=== PATIENT | female | born 1945 | race Caucasian/White ===

== ENCOUNTER 2017-04-07 10:39 | Inpatient (IN) | payer MEDICARE, OTHER ==
[2017-04-07] MEDS: ASPIRIN 81 MG TAB PO (11:25)
[2017-04-07 11:31] LABS: ADD MAN DIFF? NO
[2017-04-07 11:36] LABS: WHITE BLOOD COUNT 13.7 10^3/ul (4.8-10.8)
[2017-04-07 11:36] LABS: BASOPHIL # 0.1 10^3/ul (0.0-0.1); BASOPHILS % 0.4 % (0.0-2.0); EOSINOPHILS # 0.1 10^3/ul (0.0-0.5); EOSINOPHILS % 0.7 % (0.0-7.0); HEMATOCRIT 37.9 % (37.0-47.0); HEMOGLOBIN 12.2 g/dl (12.0-16.0); LYMPHOCYTES # 0.7 10^3/ul (0.8-2.9); LYMPHOCYTES % 5.1 % (15.0-51.0); MEAN CORPUSCULAR HGB CONC 32.2 g/dl (32.0-37.0); MEAN CORPUSCULAR VOLUME 80.6 fl (82.0-101.0); MEAN PLATELET VOLUME 11.6 fl (7.4-10.4); MONOCYTE # 0.6 10^3/ul (0.3-0.9); MONOCYTES % 4.2 % (0.0-11.0); NEUTROPHIL # 12.2 10^3/ul (1.6-7.5); NEUTROPHILS % 89.2 % (39.0-77.0); PLATELET COUNT 248 10^3/UL (140-415); RED CELL DISTRIBUTION WIDTH 13.9 % (11.5-14.5)
[2017-04-07] MEDS: NITROGLYCERIN (SL) 0.4 MG TAB SL (11:53)
[2017-04-07 11:57] LABS: ANION GAP 12 (8-16); BLOOD UREA NITROGEN 23 mg/dl (7-20); CALCIUM 9.7 mg/dl (8.4-10.2); CARBON DIOXIDE 27 mmol/L (21-31); CHLORIDE 108 mmol/L (97-110); CREATININE 0.65 mg/dl (0.44-1.00); GLUCOSE 140 mg/dl (70-220); POTASSIUM 4.1 mmol/L (3.5-5.1); SODIUM 143 mmol/L (135-144)
[2017-04-07 12:14] LABS: TROPONIN-I < 0.012 ng/ml (0.00-0.12)
[2017-04-07 18:20] LABS: CREATINE KINASE 23 IU/L (23-200)
[2017-04-07 18:30] LABS: CK INDEX 5.3; CK-MB 1.23 ng/ml (0.0-2.4)
[2017-04-07 18:55] LABS: TROPONIN-I 0.028 ng/ml (0.00-0.12)
[2017-04-07] MEDS: SOD CHLORIDE 0.9% 1,000 ML IV (18:59)
[2017-04-07] MEDS: METOPROLOL 50 MG TAB PO (21:00)
[2017-04-07] MEDS: APIXABAN 5 MG TABLET PO (21:21)
[2017-04-07] MEDS: GUAIFENESIN LA 600 MG TABSR PO (22:18)
[2017-04-07] MEDS: ONDANSETRON 4 MG INJ IV (22:24)
[2017-04-07] MEDS: LOPERAMIDE 2 MG CAP PO (23:25)
[2017-04-07] MEDS: ACETAMINOPHEN 325 MG TAB PO (23:25)
[2017-04-07 23:47] LABS: CREATINE KINASE 24 IU/L (23-200)
[2017-04-07 23:56] LABS: CK INDEX 5.7; CK-MB 1.36 ng/ml (0.0-2.4)
[2017-04-08] MEDS: SOD CHLORIDE 0.9% 1,000 ML IV ×2 (02:36→10:00)
[2017-04-08 07:28] LABS: ADD MAN DIFF? NO
[2017-04-08 07:33] LABS: BASOPHILS % 0.3 % (0.0-2.0); EOSINOPHILS # 0.1 10^3/ul (0.0-0.5); HEMATOCRIT 33.5 % (37.0-47.0); HEMOGLOBIN 10.6 g/dl (12.0-16.0); LYMPHOCYTES # 1.3 10^3/ul (0.8-2.9); MEAN CORPUSCULAR HEMOGLOBIN 25.8 pg (29.0-33.0); MEAN CORPUSCULAR HGB CONC 31.6 g/dl (32.0-37.0); MEAN CORPUSCULAR VOLUME 81.5 fl (82.0-101.0); MEAN PLATELET VOLUME 11.6 fl (7.4-10.4); MONOCYTE # 0.7 10^3/ul (0.3-0.9); MONOCYTES % 12.4 % (0.0-11.0); NEUTROPHIL # 3.8 10^3/ul (1.6-7.5); PLATELET COUNT 175 10^3/UL (140-415); RED BLOOD COUNT 4.11 10^6/ul (4.20-5.40); RED CELL DISTRIBUTION WIDTH 13.9 % (11.5-14.5)
[2017-04-08 10:24] LABS: ANION GAP 12 (8-16); BLOOD UREA NITROGEN 21 mg/dl (7-20); CALCIUM 8.9 mg/dl (8.4-10.2); CARBON DIOXIDE 20 mmol/L (21-31); CHLORIDE 112 mmol/L (97-110); CREATININE 0.65 mg/dl (0.44-1.00); GLUCOSE 94 mg/dl (70-220); POTASSIUM 3.3 mmol/L (3.5-5.1); SODIUM 141 mmol/L (135-144)
[2017-04-08] MEDS: METHIMAZOLE 5 MG TAB PO (11:18)
[2017-04-08] MEDS: GUAIFENESIN LA 600 MG TABSR PO ×2 (11:18→20:39)
[2017-04-08] MEDS: APIXABAN 5 MG TABLET PO ×2 (11:18→20:39)
[2017-04-08] MEDS: METOPROLOL 50 MG TAB PO ×2 (11:19→20:41)
[2017-04-08] MEDS: FUROSEMIDE 20 MG TAB PO (11:19)
[2017-04-08] MEDS: LISINOPRIL 10 MG TAB PO (11:20)
[2017-04-08] MEDS: ACETAMINOPHEN 325 MG TAB PO (11:38)
[2017-04-08] MEDS: VANCOMYCIN HCL 250 MG/5ML POSYG PO (17:32)
[2017-04-08] MEDS: POTASSIUM CHLORIDE (SR) 10 MEQ TAB PO (20:39)
[2017-04-09] MEDS: POTASSIUM CHLORIDE (SR) 10 MEQ TAB PO (00:21)
[2017-04-09] MEDS: VANCOMYCIN HCL 250 MG/5ML POSYG PO ×5 (00:21→23:53)
[2017-04-09 07:23] LABS: ADD MAN DIFF? NO
[2017-04-09 07:25] LABS: BASOPHILS % 0.3 % (0.0-2.0); EOSINOPHILS # 0.2 10^3/ul (0.0-0.5); EOSINOPHILS % 2.5 % (0.0-7.0); HEMATOCRIT 34.9 % (37.0-47.0); HEMOGLOBIN 11.1 g/dl (12.0-16.0); LYMPHOCYTES # 1.7 10^3/ul (0.8-2.9); LYMPHOCYTES % 28.3 % (15.0-51.0); MEAN CORPUSCULAR HEMOGLOBIN 25.9 pg (29.0-33.0); MEAN CORPUSCULAR HGB CONC 31.8 g/dl (32.0-37.0); MEAN CORPUSCULAR VOLUME 81.5 fl (82.0-101.0); MEAN PLATELET VOLUME 11.5 fl (7.4-10.4); MONOCYTE # 0.9 10^3/ul (0.3-0.9); MONOCYTES % 14.7 % (0.0-11.0); NEUTROPHIL # 3.3 10^3/ul (1.6-7.5); PLATELET COUNT 215 10^3/UL (140-415); RED BLOOD COUNT 4.28 10^6/ul (4.20-5.40)
[2017-04-09 07:25] LABS: WHITE BLOOD COUNT 6.1 10^3/ul (4.8-10.8)
[2017-04-09 07:52] LABS: ANION GAP 15 (8-16); BLOOD UREA NITROGEN 18 mg/dl (7-20); CALCIUM 9.6 mg/dl (8.4-10.2); CARBON DIOXIDE 15 mmol/L (21-31); CHLORIDE 115 mmol/L (97-110); CREATININE 0.64 mg/dl (0.44-1.00); GLUCOSE 77 mg/dl (70-220); MAGNESIUM 1.8 mg/dl (1.7-2.5); POTASSIUM 4.1 mmol/L (3.5-5.1); SODIUM 141 mmol/L (135-144)
[2017-04-09] MEDS: METOPROLOL 50 MG TAB PO ×2 (09:14→20:24)
[2017-04-09] MEDS: METHIMAZOLE 5 MG TAB PO (09:14)
[2017-04-09] MEDS: APIXABAN 5 MG TABLET PO ×2 (09:14→20:22)
[2017-04-09] MEDS: LISINOPRIL 10 MG TAB PO (09:14)
[2017-04-09] MEDS: FUROSEMIDE 20 MG TAB PO (09:14)
[2017-04-09] MEDS: GUAIFENESIN LA 600 MG TABSR PO ×2 (09:14→21:00)
[2017-04-09] MEDS: NYSTATIN 30 GM POWDER BTL TOP ×2 (16:20→20:23)
[2017-04-09] MEDS: HYDROCODONE/APAP (5/325) TAB PO (16:21)
[2017-04-09] MEDS: GUAIFENESIN/DM 5ML CUP PO (21:21)
[2017-04-09] MEDS: PE/SHARK OIL/MO/PETROL 30 GM OINT PR (23:53)
[2017-04-10] MEDS: VANCOMYCIN HCL 250 MG/5ML POSYG PO ×3 (05:52→18:56)
[2017-04-10 07:26] LABS: HEMOGLOBIN A1C 5.6 % (0-5.9)
[2017-04-10] MEDS: METHIMAZOLE 5 MG TAB PO (09:32)
[2017-04-10] MEDS: GUAIFENESIN LA 600 MG TABSR PO ×2 (09:32→21:10)
[2017-04-10] MEDS: METOPROLOL 50 MG TAB PO ×2 (09:33→21:11)
[2017-04-10] MEDS: LISINOPRIL 10 MG TAB PO (09:33)
[2017-04-10] MEDS: NYSTATIN 30 GM POWDER BTL TOP ×2 (09:33→21:11)
[2017-04-10] MEDS: FUROSEMIDE 20 MG TAB PO (09:33)
[2017-04-10] MEDS: APIXABAN 5 MG TABLET PO ×2 (09:34→21:10)
[2017-04-10] MEDS: LORATADINE 10 MG TAB PO (19:03)
[2017-04-10] MEDS: FLUTICASONE 0.05% 16 GM NAS SPRAY NASAL (21:10)
[2017-04-11] MEDS: VANCOMYCIN HCL 250 MG/5ML POSYG PO ×3 (00:11→12:56)
[2017-04-11] MEDS: LORATADINE 10 MG TAB PO (09:13)
[2017-04-11] MEDS: FLUTICASONE 0.05% 16 GM NAS SPRAY NASAL (09:13)
[2017-04-11] MEDS: APIXABAN 5 MG TABLET PO (09:13)
[2017-04-11] MEDS: FUROSEMIDE 20 MG TAB PO (09:14)
[2017-04-11] MEDS: LISINOPRIL 10 MG TAB PO (09:15)
[2017-04-11] MEDS: GUAIFENESIN LA 600 MG TABSR PO (09:15)
[2017-04-11] MEDS: METHIMAZOLE 5 MG TAB PO (09:15)
[2017-04-11] MEDS: NYSTATIN 30 GM POWDER BTL TOP (09:16)
[2017-04-11] MEDS: METOPROLOL 50 MG TAB PO (09:16)
== END 2017-04-11 15:15 | disposition home health service (06) | DRG 373 ==
LOC: MS2 04-09 11:24 → E/R 10:39 → MS2 16:24 → MS4 12:58
DX: A04.72 Enterocolitis due to Clostridium difficile, not specified as recurrent (principal); I50.9 Heart failure, unspecified; I48.91 Unspecified atrial fibrillation; I11.0 Hypertensive heart disease with heart failure; E05.90 Thyrotoxicosis, unspecified without thyrotoxic crisis or storm; E11.9 Type 2 diabetes mellitus without complications; Z95.1 Presence of aortocoronary bypass graft; Z87.891 Personal history of nicotine dependence
CPT/HCPCS: 36415; 71010; 80048; 82550; 82553; 83036; 83735; 84484; 85025; 87075; 87081; 87275; 87276; 87279; 87280; 87400; 93005; 99285-25; G0378

== ENCOUNTER 2017-05-19 10:06 | Observation (INO) | payer MEDICARE, OTHER ==
[2017-05-19] MEDS: morphine 4 MG/ML VIAL IV (10:36)
[2017-05-19] MEDS ORDERED: NITROGLYCERIN (SL) 0.4 MG TAB SL (11:00)
[2017-05-19 11:04] LABS: ADD MAN DIFF? NO
[2017-05-19 11:12] LABS: WHITE BLOOD COUNT 7.8 10^3/ul (4.8-10.8)
[2017-05-19 11:12] LABS: BASOPHILS % 0.5 % (0.0-2.0); EOSINOPHILS # 0.1 10^3/ul (0.0-0.5); EOSINOPHILS % 0.9 % (0.0-7.0); HEMATOCRIT 32.4 % (37.0-47.0); HEMOGLOBIN 10.4 g/dl (12.0-16.0); LYMPHOCYTES # 1.7 10^3/ul (0.8-2.9); LYMPHOCYTES % 22.3 % (15.0-51.0); MEAN CORPUSCULAR HEMOGLOBIN 25.6 pg (29.0-33.0); MEAN CORPUSCULAR HGB CONC 32.1 g/dl (32.0-37.0); MEAN CORPUSCULAR VOLUME 79.8 fl (82.0-101.0); MEAN PLATELET VOLUME 11.4 fl (7.4-10.4); MONOCYTE # 0.6 10^3/ul (0.3-0.9); MONOCYTES % 7.4 % (0.0-11.0); NEUTROPHIL # 5.3 10^3/ul (1.6-7.5); NEUTROPHILS % 68.6 % (39.0-77.0); PLATELET COUNT 223 10^3/UL (140-415); RED BLOOD COUNT 4.06 10^6/ul (4.20-5.40); RED CELL DISTRIBUTION WIDTH 13.9 % (11.5-14.5)
[2017-05-19 11:32] LABS: ANION GAP 13 (8-16); BLOOD UREA NITROGEN 11 mg/dl (7-20); CALCIUM 9.4 mg/dl (8.4-10.2); CARBON DIOXIDE 26 mmol/L (21-31); CHLORIDE 107 mmol/L (97-110); CREATININE 0.62 mg/dl (0.44-1.00); GLUCOSE 127 mg/dl (70-220); POTASSIUM 3.5 mmol/L (3.5-5.1); SODIUM 142 mmol/L (135-144)
[2017-05-19] MEDS: ONDANSETRON 4 MG INJ IV (11:34)
[2017-05-19] MEDS: NITROGLYCERIN 2% 1 GM OINT PKT TD (11:34)
[2017-05-19] MEDS: ASPIRIN 81 MG TAB PO (11:35)
[2017-05-19 11:44] LABS: TROPONIN-I 0.032 ng/ml (0.00-0.12)
[2017-05-19] MEDS ORDERED: ONDANSETRON 4 MG INJ IV (13:30)
[2017-05-19] MEDS ORDERED: GLUCOSE GEL 15 GRAM TUBE BUCCAL (15:30)
[2017-05-19] MEDS ORDERED: GLUCOSE GEL 15 GRAM TUBE PO ×2 (15:30)
[2017-05-19] MEDS ORDERED: GLUCAGON 1 MG INJ IM (15:30)
[2017-05-19] MEDS ORDERED: DEXTROSE 50% 50 ML SYRINGE IV ×2 (15:30)
[2017-05-19] MEDS: ACETAMINOPHEN 325 MG TAB PO (15:33)
[2017-05-19 17:05] LABS: CREATINE KINASE 34 IU/L (23-200)
[2017-05-19 17:15] LABS: CK INDEX 2.7; CK-MB 0.91 ng/ml (0.0-2.4)
[2017-05-19] MEDS: INSULIN ASPART [NOVOLOG] 3 ML PEN SC ×2 (18:00→21:00)
[2017-05-19] MEDS: METOPROLOL 50 MG TAB PO (21:53)
[2017-05-19] MEDS: APIXABAN 5 MG TABLET PO (21:54)
[2017-05-19] MEDS ORDERED: FLUTICASONE 0.05% 16 GM NAS SPRAY NASAL (23:00)
[2017-05-19 23:46] LABS: CREATINE KINASE 30 IU/L (23-200)
[2017-05-19 23:57] LABS: CK INDEX 2.7; CK-MB 0.82 ng/ml (0.0-2.4); TROPONIN-I 0.043 ng/ml (0.00-0.12)
[2017-05-20] MEDS: FLUTICASONE 0.05% 16 GM NAS SPRAY NASAL ×2 (01:10→16:43)
[2017-05-20] MEDS: CEPASTAT LOZENGE MT ×2 (01:10→09:24)
[2017-05-20] MEDS: BENZONATATE 100 MG CAP PO ×2 (01:10→15:10)
[2017-05-20] MEDS: ACCU-CHEK XX (02:00)
[2017-05-20] MEDS: ACETAMINOPHEN 325 MG TAB PO ×2 (05:45→10:30)
[2017-05-20] MEDS: INSULIN ASPART [NOVOLOG] 3 ML PEN SC ×4 (07:30→21:00)
[2017-05-20] MEDS: FUROSEMIDE 20 MG TAB PO (08:08)
[2017-05-20] MEDS: metFORMIN 500 MG TAB PO (08:09)
[2017-05-20] MEDS: APIXABAN 5 MG TABLET PO ×2 (08:09→21:41)
[2017-05-20] MEDS: LISINOPRIL 10 MG TAB PO (08:09)
[2017-05-20] MEDS: METHIMAZOLE 5 MG TAB PO (08:10)
[2017-05-20] MEDS: METOPROLOL 50 MG TAB PO ×2 (08:11→21:41)
[2017-05-20] MEDS: GUAIFENESIN/DM 5ML CUP PO ×3 (10:30→18:45)
[2017-05-20 10:58] LABS: ADD MAN DIFF? NO
[2017-05-20 11:01] LABS: BASOPHIL # 0.1 10^3/ul (0.0-0.1); BASOPHILS % 0.7 % (0.0-2.0); EOSINOPHILS # 0.2 10^3/ul (0.0-0.5); EOSINOPHILS % 2.3 % (0.0-7.0); HEMATOCRIT 32.8 % (37.0-47.0); HEMOGLOBIN 10.4 g/dl (12.0-16.0); LYMPHOCYTES # 2.2 10^3/ul (0.8-2.9); MEAN CORPUSCULAR HEMOGLOBIN 25.7 pg (29.0-33.0); MEAN CORPUSCULAR HGB CONC 31.7 g/dl (32.0-37.0); MEAN PLATELET VOLUME 11.7 fl (7.4-10.4); MONOCYTE # 0.8 10^3/ul (0.3-0.9); MONOCYTES % 8.6 % (0.0-11.0); NEUTROPHIL # 5.9 10^3/ul (1.6-7.5); NEUTROPHILS % 64.3 % (39.0-77.0); PLATELET COUNT 229 10^3/UL (140-415); RED BLOOD COUNT 4.05 10^6/ul (4.20-5.40); RED CELL DISTRIBUTION WIDTH 14.2 % (11.5-14.5)
[2017-05-20 11:01] LABS: WHITE BLOOD COUNT 9.1 10^3/ul (4.8-10.8)
[2017-05-20 11:28] LABS: IRON 25 ug/dl (35-150)
[2017-05-20 11:30] LABS: ALANINE AMINOTRANSFERASE 25 IU/L (13-69); ALBUMIN 3.6 g/dl (3.3-4.9); ALKALINE PHOSPHATASE 91 IU/L (42-121); ANION GAP 12 (8-16); ASPARTATE AMINO TRANSFERASE 20 IU/L (15-46); BILIRUBIN,INDIRECT 0.7 mg/dl (0-1.1); BILIRUBIN,TOTAL 0.7 mg/dl (0.2-1.3); BLOOD UREA NITROGEN 11 mg/dl (7-20); CALCIUM 9.7 mg/dl (8.4-10.2); CARBON DIOXIDE 29 mmol/L (21-31); CHLORIDE 105 mmol/L (97-110); CREATININE 0.64 mg/dl (0.44-1.00); GLUCOSE 114 mg/dl (70-220); SODIUM 142 mmol/L (135-144); TOTAL PROTEIN 7.4 g/dl (6.1-8.1)
[2017-05-20 11:38] LABS: % IRON SATURATION 9 % SAT (22-52); TOTAL IRON BINDING CAPACITY 271 ug/dl (241-421)
[2017-05-20 11:41] LABS: FREE THYROXINE INDEX (Calc) 9.38 ug/ml (0.65-3.89); T3 UPTAKE 39.4 % (23.5-40.5); T4 (THYROXINE) 23.8 ug/dl (5.5-11.0)
[2017-05-20 11:58] LABS: THYROID STIMULATING HORMONE < 0.015 MIU/L (0.465-4.680)
[2017-05-21] MEDS: ACCU-CHEK XX (02:00)
[2017-05-21] MEDS: GUAIFENESIN/DM 5ML CUP PO ×2 (06:27→12:59)
[2017-05-21] MEDS: INSULIN ASPART [NOVOLOG] 3 ML PEN SC ×2 (07:55→11:50)
[2017-05-21 08:04] LABS: ADD MAN DIFF? NO
[2017-05-21 08:18] LABS: WHITE BLOOD COUNT 7.6 10^3/ul (4.8-10.8)
[2017-05-21 08:18] LABS: BASOPHIL # 0.1 10^3/ul (0.0-0.1); BASOPHILS % 0.7 % (0.0-2.0); EOSINOPHILS # 0.2 10^3/ul (0.0-0.5); EOSINOPHILS % 2.9 % (0.0-7.0); HEMATOCRIT 32.8 % (37.0-47.0); HEMOGLOBIN 10.5 g/dl (12.0-16.0); LYMPHOCYTES # 1.8 10^3/ul (0.8-2.9); LYMPHOCYTES % 23.9 % (15.0-51.0); MEAN CORPUSCULAR HEMOGLOBIN 25.7 pg (29.0-33.0); MEAN CORPUSCULAR VOLUME 80.2 fl (82.0-101.0); MEAN PLATELET VOLUME 11.7 fl (7.4-10.4); MONOCYTE # 0.8 10^3/ul (0.3-0.9); MONOCYTES % 10.8 % (0.0-11.0); NEUTROPHIL # 4.7 10^3/ul (1.6-7.5); NEUTROPHILS % 61.3 % (39.0-77.0); PLATELET COUNT 216 10^3/UL (140-415); RED BLOOD COUNT 4.09 10^6/ul (4.20-5.40); RED CELL DISTRIBUTION WIDTH 13.7 % (11.5-14.5)
[2017-05-21 08:27] LABS: IRON 25 ug/dl (35-150)
[2017-05-21 08:31] LABS: CHOLESTEROL 151 mg/dl (100-200)
[2017-05-21 08:31] LABS: CHOL/HDL RATIO 3.6 RATIO; HDL CHOLESTEROL 41 mg/dl (33-92); LDL CHOLESTEROL,CALCULATED 87 mg/dl; TRIGLYCERIDES 113 mg/dl (0-149)
[2017-05-21 08:33] LABS: PHOSPHORUS 3.9 mg/dl (2.5-4.9)
[2017-05-21 08:33] LABS: MAGNESIUM 1.9 mg/dl (1.7-2.5)
[2017-05-21 08:37] LABS: % IRON SATURATION 10 % SAT (22-52); TOTAL IRON BINDING CAPACITY 260 ug/dl (241-421)
[2017-05-21] MEDS: FUROSEMIDE 20 MG TAB PO (08:49)
[2017-05-21] MEDS: METHIMAZOLE 5 MG TAB PO (08:49)
[2017-05-21] MEDS: LISINOPRIL 10 MG TAB PO (08:49)
[2017-05-21] MEDS: metFORMIN 500 MG TAB PO (08:50)
[2017-05-21] MEDS: METOPROLOL 50 MG TAB PO (08:50)
[2017-05-21] MEDS: APIXABAN 5 MG TABLET PO (08:50)
[2017-05-21] MEDS: ACETAMINOPHEN 325 MG TAB PO (08:54)
[2017-05-21 09:04] LABS: FERRITIN 54.5 ng/ml (11.1-264.0)
[2017-05-21 09:39] LABS: HEMOGLOBIN A1C 5.6 % (0-5.9)
[2017-05-21 10:55] LABS: ANION GAP 14 (8-16); BLOOD UREA NITROGEN 13 mg/dl (7-20); CALCIUM 9.5 mg/dl (8.4-10.2); CARBON DIOXIDE 26 mmol/L (21-31); CHLORIDE 105 mmol/L (97-110); GLUCOSE 109 mg/dl (70-220); POTASSIUM 3.7 mmol/L (3.5-5.1); SODIUM 141 mmol/L (135-144)
== END 2017-05-21 15:50 | disposition home or self-care (01) ==
LOC: E/R 10:06 → TEL 13:13
DX: R07.9 Chest pain, unspecified (principal); J06.9 Acute upper respiratory infection, unspecified; I25.10 Atherosclerotic heart disease of native coronary artery without angina pectoris; Z95.1 Presence of aortocoronary bypass graft; Z95.5 Presence of coronary angioplasty implant and graft; I48.0 Paroxysmal atrial fibrillation; I10 Essential (primary) hypertension; I25.2 Old myocardial infarction; Z79.01 Long term (current) use of anticoagulants; F17.200 Nicotine dependence, unspecified, uncomplicated; E11.9 Type 2 diabetes mellitus without complications; I35.0 Nonrheumatic aortic (valve) stenosis; E05.90 Thyrotoxicosis, unspecified without thyrotoxic crisis or storm; I42.9 Cardiomyopathy, unspecified; I27.20 Pulmonary hypertension, unspecified; D50.9 Iron deficiency anemia, unspecified; Z82.49 Family history of ischemic heart disease and other diseases of the circulatory system
CPT/HCPCS: 36415; 71045; 73562; 80048; 80061; 80076; 82550; 82553; 82728; 82962; 83036; 83540; 83735; 84100; 84436; 84443; 84479; 84484; 85025; 93005; 96374; 96375; 99285-25; G0378

== ENCOUNTER 2017-07-31 10:58 | Inpatient (IN) | payer MEDICARE, OTHER ==
[2017-07-31] MEDS ORDERED: FUROSEMIDE 40 MG INJ (12:01)
[2017-07-31] MEDS: ASPIRIN 81 MG TAB PO (12:10)
[2017-07-31] MEDS: NITROGLYCERIN (SL) 0.4 MG TAB SL (12:10)
[2017-07-31] MEDS: ONDANSETRON 4 MG INJ IV (12:10)
[2017-07-31] MEDS: FUROSEMIDE 40 MG INJ IV (12:10)
[2017-07-31] MEDS: morphine 4 MG/ML VIAL IV (12:10)
[2017-07-31] MEDS ORDERED: HEPARIN 1000 UNITS/ML 10 ML INJ (12:16)
[2017-07-31] MEDS ORDERED: LIDOCAINE 1% (MDV) 20 ML INJ (12:16)
[2017-07-31] MEDS ORDERED: IODIXANOL LOCM 100 ML BTL (12:16)
[2017-07-31] MEDS ORDERED: MIDAZOLAM 1 MG/ML 2 ML INJ (12:16)
[2017-07-31] MEDS ORDERED: FENTAnyl 50 MCG/ML VIAL (12:16)
[2017-07-31] MEDS ORDERED: NITROGLYCERIN (IC) 100 MCG/ML INJ (12:16)
[2017-07-31 12:17] LABS: ADD MAN DIFF? NO
[2017-07-31] MEDS ORDERED: IOHEXOL 350MG/ML 50 ML BTL (12:19)
[2017-07-31] MEDS ORDERED: SOD CHLORIDE 0.9% 500 ML (12:19)
[2017-07-31 12:22] LABS: BASOPHILS % 0.4 % (0.0-2.0); EOSINOPHILS % 0.3 % (0.0-7.0); HEMOGLOBIN 10.6 g/dl (12.0-16.0); LYMPHOCYTES # 1.5 10^3/ul (0.8-2.9); LYMPHOCYTES % 21.7 % (15.0-51.0); MEAN CORPUSCULAR HGB CONC 33.1 g/dl (32.0-37.0); MEAN CORPUSCULAR VOLUME 78.6 fl (82.0-101.0); MEAN PLATELET VOLUME 12.4 fl (7.4-10.4); MONOCYTE # 0.7 10^3/ul (0.3-0.9); MONOCYTES % 9.3 % (0.0-11.0); NEUTROPHIL # 4.7 10^3/ul (1.6-7.5); PLATELET COUNT 180 10^3/UL (140-415); RED BLOOD COUNT 4.07 10^6/ul (4.20-5.40); RED CELL DISTRIBUTION WIDTH 16.2 % (11.5-14.5)
[2017-07-31 12:37] LABS: ALANINE AMINOTRANSFERASE 41 IU/L (13-69); ALBUMIN 3.2 g/dl (3.3-4.9); ALKALINE PHOSPHATASE 76 IU/L (42-121); ANION GAP 14 (8-16); ASPARTATE AMINO TRANSFERASE 27 IU/L (15-46); BILIRUBIN,INDIRECT 1.5 mg/dl (0-1.1); BILIRUBIN,TOTAL 1.5 mg/dl (0.2-1.3); BLOOD UREA NITROGEN 12 mg/dl (7-20); CALCIUM 8.9 mg/dl (8.4-10.2); CARBON DIOXIDE 28 mmol/L (21-31); CHLORIDE 102 mmol/L (97-110); CREATININE 0.57 mg/dl (0.44-1.00); GLUCOSE 131 mg/dl (70-220); LIPASE 58 U/L (23-300); SODIUM 142 mmol/L (135-144); TOTAL PROTEIN 6.4 g/dl (6.1-8.1)
[2017-07-31 12:41] LABS: POTASSIUM 2.4 mmol/L (3.5-5.1)
[2017-07-31] MEDS ORDERED: POTASSIUM CHLORIDE 50 ML (12:41)
[2017-07-31 12:48] LABS: INR 1.09; PARTIAL THROMBOPLASTIN TIME 30.7 Sec (25.0-35.0); PROTIME 14.3 Sec (11.9-14.9); PT RATIO 1.1
[2017-07-31 12:49] LABS: B-TYPE NATRIURETIC PEPTIDE 11700 PG/ML (0-125); TROPONIN-I 0.037 ng/ml (0.00-0.12)
[2017-07-31] MEDS: SOD CHLORIDE 0.9% 1,000 ML IV (13:11)
[2017-07-31] MEDS ORDERED: morphine 2 MG INJ IV (13:30)
[2017-07-31] MEDS: POTASSIUM CHLORIDE 100 ML IVPB ×2 (15:00→17:00)
[2017-07-31] MEDS ORDERED: NACL 0.9% 3 ML SYG IV (15:30)
[2017-07-31] MEDS: BARIUM SULF 2% 450 ML BTL (BERRY SMOOTHIE) PO (15:30)
[2017-07-31] MEDS: POTASSIUM CHLORIDE (SR) 20 MEQ TAB PO ×2 (16:01→17:45)
[2017-07-31] MEDS ORDERED: DEXTROSE 50% 50 ML SYRINGE IV ×2 (17:30)
[2017-07-31] MEDS ORDERED: GLUCAGON 1 MG INJ IM (17:30)
[2017-07-31] MEDS ORDERED: GLUCOSE GEL 15 GRAM TUBE PO ×2 (17:30)
[2017-07-31] MEDS ORDERED: GLUCOSE GEL 15 GRAM TUBE BUCCAL (17:30)
[2017-07-31] MEDS: INSULIN ASPART [NOVOLOG] 3 ML PEN SC ×2 (17:48→21:00)
[2017-07-31] MEDS: morphine 2 MG INJ IV (17:49)
[2017-07-31] MEDS: GUAIFENESIN 20 MG/ML 5ML CUP PO (20:57)
[2017-07-31] MEDS: ATORVASTATIN 40 MG TAB PO (20:58)
[2017-07-31] MEDS: APIXABAN 5 MG TABLET PO (20:58)
[2017-07-31] MEDS: METOPROLOL 50 MG TAB PO (20:59)
[2017-07-31 21:14] LABS: CREATINE KINASE 43 IU/L (23-200)
[2017-07-31 21:27] LABS: CK INDEX 5.5; CK-MB 2.37 ng/ml (0.0-2.4); TROPONIN-I 0.058 ng/ml (0.00-0.12)
[2017-07-31] MEDS: ACETAMINOPHEN 325 MG TAB PO (22:49)
[2017-08-01] MEDS: GUAIFENESIN 20 MG/ML 5ML CUP PO ×2 (01:05→08:34)
[2017-08-01] MEDS: AL HYDROX/MG HYDROX/SIMETH 30 ML CUP PO (01:05)
[2017-08-01 01:19] LABS: ANION GAP 15 (8-16); BLOOD UREA NITROGEN 15 mg/dl (7-20); CALCIUM 8.7 mg/dl (8.4-10.2); CARBON DIOXIDE 29 mmol/L (21-31); CHLORIDE 102 mmol/L (97-110); CREATININE 0.79 mg/dl (0.44-1.00); GLUCOSE 111 mg/dl (70-220); MAGNESIUM 1.4 mg/dl (1.7-2.5); POTASSIUM 3.5 mmol/L (3.5-5.1); SODIUM 142 mmol/L (135-144)
[2017-08-01 01:20] LABS: CREATINE KINASE 42 IU/L (23-200)
[2017-08-01 01:31] LABS: CK INDEX 4.6; CK-MB 1.94 ng/ml (0.0-2.4); TROPONIN-I 0.064 ng/ml (0.00-0.12)
[2017-08-01] MEDS: MAGNESIUM SULFATE 2 GM/50 ML 50 ML IVPB (02:53)
[2017-08-01] MEDS: POTASSIUM CHLORIDE (SR) 20 MEQ TAB PO (02:54)
[2017-08-01] MEDS: KETOROLAC 30 MG INJ IV (02:54)
[2017-08-01 07:15] LABS: ADD MAN DIFF? NO
[2017-08-01 07:23] LABS: WHITE BLOOD COUNT 8.4 10^3/ul (4.8-10.8)
[2017-08-01 07:23] LABS: BASOPHILS % 0.5 % (0.0-2.0); EOSINOPHILS # 0.4 10^3/ul (0.0-0.5); EOSINOPHILS % 4.6 % (0.0-7.0); HEMATOCRIT 30.6 % (37.0-47.0); HEMOGLOBIN 9.7 g/dl (12.0-16.0); LYMPHOCYTES # 2.7 10^3/ul (0.8-2.9); LYMPHOCYTES % 32.4 % (15.0-51.0); MEAN CORPUSCULAR HEMOGLOBIN 25.8 pg (29.0-33.0); MEAN CORPUSCULAR HGB CONC 31.7 g/dl (32.0-37.0); MEAN CORPUSCULAR VOLUME 81.4 fl (82.0-101.0); MEAN PLATELET VOLUME 12.4 fl (7.4-10.4); MONOCYTE # 1.1 10^3/ul (0.3-0.9); MONOCYTES % 12.8 % (0.0-11.0); NEUTROPHIL # 4.1 10^3/ul (1.6-7.5); NEUTROPHILS % 49.2 % (39.0-77.0); PLATELET COUNT 164 10^3/UL (140-415); RED BLOOD COUNT 3.76 10^6/ul (4.20-5.40); RED CELL DISTRIBUTION WIDTH 16.9 % (11.5-14.5)
[2017-08-01 07:51] LABS: ALANINE AMINOTRANSFERASE 34 IU/L (13-69); ALBUMIN 2.6 g/dl (3.3-4.9); ALBUMIN/GLOBULIN RATIO 0.89; ALKALINE PHOSPHATASE 76 IU/L (42-121); ANION GAP 11 (8-16); ASPARTATE AMINO TRANSFERASE 22 IU/L (15-46); BILIRUBIN,INDIRECT 0.9 mg/dl (0-1.1); BILIRUBIN,TOTAL 0.9 mg/dl (0.2-1.3); BLOOD UREA NITROGEN 17 mg/dl (7-20); CALCIUM 8.1 mg/dl (8.4-10.2); CARBON DIOXIDE 28 mmol/L (21-31); CHLORIDE 106 mmol/L (97-110); CREATININE 1.02 mg/dl (0.44-1.00); GLUCOSE 105 mg/dl (70-220); POTASSIUM 4.3 mmol/L (3.5-5.1); SODIUM 141 mmol/L (135-144); TOTAL PROTEIN 5.5 g/dl (6.1-8.1)
[2017-08-01] MEDS: INSULIN ASPART [NOVOLOG] 3 ML PEN SC ×4 (08:00→21:00)
[2017-08-01 08:14] LABS: THYROID STIMULATING HORMONE < 0.015 MIU/L (0.465-4.680)
[2017-08-01] MEDS: POLYETHYLENE GLYCOL 17 GM PACKET PO (08:32)
[2017-08-01] MEDS: APIXABAN 5 MG TABLET PO ×2 (08:33→21:29)
[2017-08-01] MEDS: METHIMAZOLE 5 MG TAB PO (08:33)
[2017-08-01] MEDS: METOPROLOL 50 MG TAB PO (08:33)
[2017-08-01] MEDS: LISINOPRIL 10 MG TAB PO (08:34)
[2017-08-01] MEDS ORDERED: FUROSEMIDE 20 MG INJ IV (10:00)
[2017-08-01 10:51] LABS: FREE T4 (FREE THYROXINE) 3.45 ng/dl (0.78-2.44)
[2017-08-01] MEDS: ACETAMINOPHEN 325 MG TAB PO (11:40)
[2017-08-01 12:23] LABS: ANION GAP 13 (8-16); BLOOD UREA NITROGEN 19 mg/dl (7-20); CALCIUM 8.1 mg/dl (8.4-10.2); CARBON DIOXIDE 29 mmol/L (21-31); CHLORIDE 104 mmol/L (97-110); CREATININE 0.98 mg/dl (0.44-1.00); GLUCOSE 122 mg/dl (70-220); MAGNESIUM 2.3 mg/dl (1.7-2.5); POTASSIUM 4.2 mmol/L (3.5-5.1); SODIUM 142 mmol/L (135-144)
[2017-08-01] MEDS: morphine 2 MG INJ IV ×2 (13:19→21:28)
[2017-08-01] MEDS: FUROSEMIDE 40 MG INJ IV (17:43)
[2017-08-01] MEDS: METOPROLOL 25 MG TAB PO (21:29)
[2017-08-01] MEDS: ATORVASTATIN 40 MG TAB PO (21:29)
[2017-08-02] MEDS: ACETAMINOPHEN 325 MG TAB PO (00:29)
[2017-08-02] MEDS: FUROSEMIDE 40 MG INJ IV ×2 (07:01→17:33)
[2017-08-02] MEDS: INSULIN ASPART [NOVOLOG] 3 ML PEN SC ×4 (08:00→21:00)
[2017-08-02] MEDS: ONDANSETRON 4 MG INJ IV ×2 (08:19→12:46)
[2017-08-02] MEDS: morphine 2 MG INJ IV ×3 (08:19→22:44)
[2017-08-02] MEDS: APIXABAN 5 MG TABLET PO ×2 (08:25→21:00)
[2017-08-02] MEDS: METHIMAZOLE 5 MG TAB PO (08:25)
[2017-08-02] MEDS: METOPROLOL 25 MG TAB PO ×2 (08:25→22:45)
[2017-08-02] MEDS: POLYETHYLENE GLYCOL 17 GM PACKET PO (08:25)
[2017-08-02 10:43] LABS: ANION GAP 14 (8-16); BLOOD UREA NITROGEN 19 mg/dl (7-20); CALCIUM 8.2 mg/dl (8.4-10.2); CARBON DIOXIDE 27 mmol/L (21-31); CHLORIDE 103 mmol/L (97-110); CREATININE 0.74 mg/dl (0.44-1.00); GLUCOSE 127 mg/dl (70-220); MAGNESIUM 1.9 mg/dl (1.7-2.5); POTASSIUM 3.8 mmol/L (3.5-5.1); SODIUM 140 mmol/L (135-144)
[2017-08-02] MEDS: POTASSIUM CHLORIDE (SR) 20 MEQ TAB PO (12:47)
[2017-08-02] MEDS ORDERED: ACETAMINOPHEN 500 MG TAB PO (15:30)
[2017-08-02] MEDS: ACETAMINOPHEN 500 MG TAB PO (17:39)
[2017-08-02] MEDS: ATORVASTATIN 40 MG TAB PO (22:44)
[2017-08-03 06:11] LABS: ADD MAN DIFF? NO
[2017-08-03 06:15] LABS: WHITE BLOOD COUNT 6.6 10^3/ul (4.8-10.8)
[2017-08-03 06:15] LABS: BASOPHIL # 0.1 10^3/ul (0.0-0.1); BASOPHILS % 0.8 % (0.0-2.0); EOSINOPHILS # 0.3 10^3/ul (0.0-0.5); EOSINOPHILS % 3.9 % (0.0-7.0); HEMATOCRIT 32.5 % (37.0-47.0); HEMOGLOBIN 10.4 g/dl (12.0-16.0); LYMPHOCYTES # 2.1 10^3/ul (0.8-2.9); LYMPHOCYTES % 31.3 % (15.0-51.0); MEAN CORPUSCULAR HEMOGLOBIN 25.7 pg (29.0-33.0); MEAN CORPUSCULAR VOLUME 80.4 fl (82.0-101.0); MEAN PLATELET VOLUME 11.5 fl (7.4-10.4); MONOCYTE # 0.8 10^3/ul (0.3-0.9); MONOCYTES % 12.5 % (0.0-11.0); NEUTROPHIL # 3.4 10^3/ul (1.6-7.5); NEUTROPHILS % 51.2 % (39.0-77.0); PLATELET COUNT 158 10^3/UL (140-415); RED BLOOD COUNT 4.04 10^6/ul (4.20-5.40); RED CELL DISTRIBUTION WIDTH 16.2 % (11.5-14.5)
[2017-08-03] MEDS: FUROSEMIDE 40 MG INJ IV ×2 (06:51→17:31)
[2017-08-03] MEDS: morphine 2 MG INJ IV ×3 (06:58→23:23)
[2017-08-03] MEDS: INSULIN ASPART [NOVOLOG] 3 ML PEN SC ×4 (08:00→20:57)
[2017-08-03 08:22] LABS: ANION GAP 17 (8-16); BLOOD UREA NITROGEN 20 mg/dl (7-20); CALCIUM 8.4 mg/dl (8.4-10.2); CARBON DIOXIDE 25 mmol/L (21-31); CHLORIDE 102 mmol/L (97-110); CREATININE 0.71 mg/dl (0.44-1.00); GLUCOSE 104 mg/dl (70-220); POTASSIUM 4.1 mmol/L (3.5-5.1); SODIUM 140 mmol/L (135-144)
[2017-08-03] MEDS: APIXABAN 5 MG TABLET PO ×2 (09:00→20:58)
[2017-08-03] MEDS: POLYETHYLENE GLYCOL 17 GM PACKET PO (10:07)
[2017-08-03] MEDS: DOCUSATE SODIUM 100 MG CAP PO (10:07)
[2017-08-03] MEDS: METOPROLOL 25 MG TAB PO ×2 (10:08→20:56)
[2017-08-03] MEDS: METHIMAZOLE 5 MG TAB PO (10:11)
[2017-08-03] MEDS: HYDROCODONE/APAP (5/325) TAB PO ×2 (12:04→21:02)
[2017-08-03] MEDS: ATORVASTATIN 40 MG TAB PO (20:57)
[2017-08-04] MEDS: FUROSEMIDE 40 MG INJ IV (06:17)
[2017-08-04] MEDS: morphine 2 MG INJ IV (06:25)
[2017-08-04] MEDS: INSULIN ASPART [NOVOLOG] 3 ML PEN SC ×2 (08:00→12:00)
[2017-08-04] MEDS: APIXABAN 5 MG TABLET PO (09:00)
[2017-08-04] MEDS: METHIMAZOLE 5 MG TAB PO (09:14)
[2017-08-04] MEDS: POLYETHYLENE GLYCOL 17 GM PACKET PO (09:14)
[2017-08-04] MEDS: METOPROLOL 25 MG TAB PO (09:15)
[2017-08-04] MEDS: HYDROCODONE/APAP (5/325) TAB PO (10:37)
== END 2017-08-04 14:32 | disposition left against medical advice (07) | DRG 286 ==
LOC: E/R 10:58 → REC 12:04 → MS4 13:59
PROC: 4A023N7 Measurement of Cardiac Sampling and Pressure, Left Heart, Percutaneous Approach (ICD-10-PCS; principal; 2017-07-31 12:00)
PROC: B310YZZ Fluoroscopy of Thoracic Aorta using Other Contrast (ICD-10-PCS; 2017-07-31 12:00)
PROC: B216YZZ Fluoroscopy of Right and Left Heart using Other Contrast (ICD-10-PCS; 2017-07-31 12:00)
PROC: B211YZZ Fluoroscopy of Multiple Coronary Arteries using Other Contrast (ICD-10-PCS; 2017-07-31 12:00)
PROC: B212YZZ Fluoroscopy of Single Coronary Artery Bypass Graft using Other Contrast (ICD-10-PCS; 2017-07-31 12:00)
DX: I35.0 Nonrheumatic aortic (valve) stenosis (principal); I50.33 Acute on chronic diastolic (congestive) heart failure; L76.32 Postprocedural hematoma of skin and subcutaneous tissue following other procedure; R00.1 Bradycardia, unspecified; E11.9 Type 2 diabetes mellitus without complications; I11.0 Hypertensive heart disease with heart failure; E05.00 Thyrotoxicosis with diffuse goiter without thyrotoxic crisis or storm; I48.2 Chronic atrial fibrillation; I25.10 Atherosclerotic heart disease of native coronary artery without angina pectoris; E87.6 Hypokalemia; I72.4 Aneurysm of artery of lower extremity; Y84.8 Other medical procedures as the cause of abnormal reaction of the patient, or of later complication, without mention of misadventure at the time of the procedure; Y92.230 Patient room in hospital as the place of occurrence of the external cause; Z79.4 Long term (current) use of insulin; Z79.02 Long term (current) use of antithrombotics/antiplatelets; Z87.891 Personal history of nicotine dependence; Z95.1 Presence of aortocoronary bypass graft
CPT/HCPCS: 36415; 71045; 74176; 80048; 80053; 82550; 82553; 82962; 83690; 83735; 83880; 84439; 84443; 84484; 85025; 85610; 85730; 92941; 93005; 93922; 93926; 96374; 96375; 99291-25